=== PATIENT | male | born 1995 | race Caucasian/White ===

== ENCOUNTER 2017-03-04 18:16 | Emergency (ER) | payer MEDICAID ==
[~2017-03-04] VITALS: Ht 177.8 cm; Wt 92.3 kg
[2017-03-04] MEDS ORDERED: IBUPROFEN 200 MG TABLET PO ONE (19:30)
[2017-03-04] MEDS ORDERED: ACETAMINOPHEN 500 MG TABLET PO ONE (19:30)
[2017-03-04] MEDS ORDERED: IBUPROFEN 200 MG TABLET ONE (19:41)
[2017-03-04] MEDS ORDERED: ACETAMINOPHEN 500 MG TABLET ONE (19:41)
[2017-03-04 20:45] VITALS: BP 138/82
== END 2017-03-04 20:50 | disposition home or self-care (01) ==
LOC: ED 20:00
DX: S13.9XXA Sprain of joints and ligaments of unspecified parts of neck, initial encounter (principal); S33.5XXA Sprain of ligaments of lumbar spine, initial encounter; F17.200 Nicotine dependence, unspecified, uncomplicated; V49.88XA Car occupant (driver) (passenger) injured in other specified transport accidents, initial encounter; Y93.89 Activity, other specified; Y99.8 Other external cause status; Y92.488 Other paved roadways as the place of occurrence of the external cause
CPT/HCPCS: 72020; 72050; 72110; 99284